=== PATIENT | male | born 1980 | race Two or more races ===

== ENCOUNTER → 2024-06-10 | Outpatient (CLI) | payer MEDICAID, SELFPAY ==
--- NOTE | 2024-06-10 13:30 | ECHO_ITS ---
Transthoracic Echo Report Ht (in): 73 Wt (lb): 260 Exam Location: Echo Lab Status: Pread[facility] [employer]: SHAVONNE Benitez^^^^ Indications: Procedure Performed: BP: 122 / 78 HR: 78 Technical Quality: Fair MEASUREMENTS (Male / Female) Normal Values 2D ECHO LV Diastolic Diameter PLAX 4.9 cm 4.2 - 5.9 / 3.9 - 5.3 cm LV Systolic Diameter PLAX 3.2 cm IVS Diastolic Thickness 0.8 cm 0.6 - 1.0 / 0.6 - 0.9 cm LVPW Diastolic Thickness 0.9 cm 0.6 - 1.0 / 0.6 - 0.9 cm LV Relative Wall Thickness 0.4 LVOT Diameter 1.9 cm Aortic Root Diameter 3.7 cm LA Systolic Diameter LX 3.3 cm 3.0 - 4.0 / 2.7 - 3.8 cm LV Ejection Fraction MOD BP 61.6 % >= 55 % LV Cardiac Index MOD BP 1702.5 cm?/min?m? LV Ejection Fraction MOD 4C 66.6 % LV Cardiac Index MOD 4C 2117.2 cm?/min?m? LV Ejection Fraction 4C AL 67.8 % LV Cardiac Index 4C AL 2269.4 cm?/min?m? LV Ejection Fraction MOD 2C 52.9 % LV Cardiac Index MOD 2C 1200.5 cm?/min?m? LV Ejection Fraction 2C AL 55.1 % LV Cardiac Index 2C AL 1268.7 cm?/min?m? LA Volume Index 11.2 cm?/m? 16 - 28 cm?/m? Ascending Aorta Diameter 3.9 cm DOPPLER AV Peak Velocity 122.7 cm/s AV Peak Gradient 6.0 mmHg AV Mean Gradient 4.0 mmHg AV Velocity Time Integral 24.9 cm AI Peak Velocity 185.3 cm/s AI Peak Gradient 13.7 mmHg AI Pressure Half Time 513.3 ms LVOT Peak Velocity 86.1 cm/s LVOT Peak Gradient 3.0 mmHg LVOT Velocity Time Integral 20.0 cm LVOT Cardiac Index 1768.2 cm?/min?m? AV Area Cont Eq vti 2.3 cm? AV Area Cont Eq pk 2.0 cm? MV Area PHT 3.9 cm? Mitral E Point Velocity 52.9 cm/s Mitral A Point Velocity 65.0 cm/s Mitral E to A Ratio 0.8 LV E' Lateral Velocity 9.6 cm/s Mitral E to LV E' Lateral Ratio 5.5 LV E' Septal Velocity 6.1 cm/s Mitral E to LV E' Septal Ratio 8.7 TR Peak Velocity 238.8 cm/s TR Peak Gradient 22.8 mmHg PV Peak Velocity 96.1 cm/s PV Peak Gradient 3.7 mmHg RVOT Peak Velocity 51.0 cm/s FINDINGS Left Ventricle Normal left ventricular size, wall thickness, systolic function with no obvious regional wall motion abnormalities. The ejection fraction is visually estimated at 55-60 %. There is grade I diastolic dysfunction of the left ventricle (impaired relaxation pattern). Right Ventricle The right ventricle is normal in size and systolic function. The estimated right ventricular systolic pressure, 30 mmHg. Left Atrium The left atrium is normal by two-dimensional, color flow and Doppler imaging with no structural abnormalities, no thrombus formation present. Right Atrium The right atrium is normal by two-dimensional imaging, color flow and Doppler imaging with no structural abnormalities, no thrombus formation present. Atrial Septum The interatrial septum appears normal with no evidence of a shunt. Aorta The aorta is normal by two-dimensional, color flow and Doppler interrogation. Mitral Valve Structurally normal mitral valve. Trace to mild mitral regurgitation. Aortic Valve Structurally normal aortic valve. Trace to mild aortic valve regurgitation. Tricuspid Valve There is mild tricuspid valve regurgitation. Pulmonic Valve Trivial pulmonic valve regurgitation. Vessels The pulmonary artery appears normal. The inferior vena cava pulmonary and hepatic veins appear normal. Pericardium The pericardium is normal by two-dimensional imaging. There is no significant pericardial effusion. CONCLUSIONS indication: palpitations LV appears normal with EF of 55-60%. Diastolic Dysfunction I is present. RV appears normal with RVSP of 30 mmHg MV has trace-mild MR AOV has trace-mild AI TV has mild TR Carl Contreras (Electronically Signed) Final Date: 10 June 2024 14:27
== END | disposition home or self-care (01) ==
LOC: SDIM 12:46
PROVIDERS: PCP Family Medicine; Referring Provider Family Medicine; Visit Provider Family Medicine
DX: I08.3 Combined rheumatic disorders of mitral, aortic and tricuspid valves (principal)
CPT/HCPCS: 93306